=== PATIENT | female | born 1960 | race Hispanic/Latino ===

== ENCOUNTER 2016-07-31 22:27 | Emergency (ER) | payer OTHER, SELFPAY ==
[2016-07-31] MEDS ORDERED: Acetaminophen 500 MG TAB ONE (23:03)
[2016-07-31 23:04] LABS: #Basophils 0.1 thou/uL (0.0-0.2); #Eosinphils 0.2 thou/uL (0.0-0.7); #Lymphocytes 4.1 thou/uL (1.20-3.40); #Monocytes 0.6 thou/uL (0.11-0.59); #Neutrophils 4.1 thou/uL (1.40-6.50); %Basophils 1.1 % (0.0-1.0); %Eosinophils 2.6 % (0.0-10.0); Mean Platelet Volume 6.6 fL (7.4-10.4); Red Blood Cell (RBC) Count 4.82 mill/uL (4.20-5.40); White Blood Cell (WBC) Count 9.2 thou/uL (4.8-10.8)
[2016-07-31 23:22] LABS: ALT (SGPT) 22 U/L (0-55); AST (SGOT) 16 U/L (5-34); Alkaline Phosphatase 94 U/L (40-150); Anion Gap 17 mmol/L (10-20); BUN (Urea Nitrogen) 16 mg/dL (9.8-20.1); Bilirubin, Total 0.2 mg/dL (0.2-1.2); Calc. Creatinine Clearance 0 mL/min (70-130); Calcium 9.4 mg/dL (7.8-10.44); Carbon Dioxide 23 mmol/L (22-29); Chloride 103 mmol/L (98-107); Estimated GFR-MDRD 67; Globulin 3.6 g/dL (2.4-3.5)
[2016-07-31 23:23] LABS: Troponin I Less than 0.010 ng/mL (< 0.028)
--- NOTE | 2016-08-01 07:35 | RAD ---
PORTABLE CHEST: DATE: 07/31/16. FINDINGS: Comparison is made with the 09/01/13 study. The heart is normal in size and the lungs are clear. N i nfiltrate or effusion was seen. There is no vascular congestion or edema. The mediastinum appears normal and the trachea is midline. IMPRESSION: Stable exam showing no acute finding. POS: HOME
== END 2016-07-31 23:35 | disposition home or self-care (01) ==
LOC: BURERS 22:27
DX: R51 Headache (principal); E11.9 Type 2 diabetes mellitus without complications; E78.5 Hyperlipidemia, unspecified; Z79.84 Long term (current) use of oral hypoglycemic drugs; Z79.4 Long term (current) use of insulin
CPT/HCPCS: 71010; 80053; 82553; 84484; 85025; 93005

== ENCOUNTER 2020-07-17 10:24 | Outpatient (CLI) | payer OTHER | END 2020-07-17 10:25 | disposition home or self-care (01) | LOC: BUREKG 10:24 | PROVIDERS: ATTEND Physician Assistant | DX: R00.0 Tachycardia, unspecified (principal) | CPT/HCPCS: 93005; 93010 ==

== ENCOUNTER 2021-01-15 08:06 | Outpatient (CLI) | payer OTHER ==
[2021-01-15 08:55] LABS: ALT (SGPT) 19 U/L (8-55); AST (SGOT) 18 U/L (5-34); Albumin 4.3 g/dL (3.5-5.0); Alkaline Phosphatase 100 U/L (40-110); Anion Gap 16 mmol/L (10-20); BUN (Urea Nitrogen) 27 mg/dL (9.8-20.1); Bilirubin, Total 0.3 mg/dL (0.2-1.2); Calc. Creatinine Clearance 0 mL/min (70-130); Calcium 9.1 mg/dL (7.8-10.44); Carbon Dioxide 24 mmol/L (22-29); Cardiac Risk 4.5 (Less than 4.5); Chloride 102 mmol/L (98-107); Cholesterol 206 mg/dl (< 200 Desired); Globulin 3.3 g/dL (2.4-3.5); Glucose 187 mg/dL (70-105); HDL Cholesterol 46 mg/dL (>60 Neg Risk); LDL Cholesterol, Calculated 109 mg/dL; Potassium 4.8 mmol/L (3.5-5.1); Protein, Total 7.6 g/dL (6.0-8.3); Sodium 137 mmol/L (136-145); Triglycerides 256 mg/dL (Less than 150)
[2021-01-15 09:38] LABS: Thyroid Stimulating Hormone 1.6139 uIU/mL (0.35-4.94)
[2021-01-15 11:58] LABS: Hemoglobin A1c 8.7 % (4.0-6.0)
[2021-01-15 12:40] LABS: Creatinine, Urine 66.94 mg/dL (47-110); Microalbumin Urine Less than 1.0 mg/dL (0.5-50.0)
[2021-01-15 14:09] LABS: Free T4 (Free Thyroxine) 0.97 ng/dL (0.70-1.48)
== END 2021-01-15 08:07 | disposition home or self-care (01) ==
LOC: BURLAB 08:06
PROVIDERS: ATTEND Internal Medicine Endocrinology, Diabetes & Metabolism
DX: E11.65 Type 2 diabetes mellitus with hyperglycemia (principal); R00.2 Palpitations
CPT/HCPCS: 36415; 80053; 80061; 82043; 83036; 84439; 84443

== ENCOUNTER 2021-04-16 08:19 | Outpatient (CLI) | payer OTHER ==
[2021-04-16 09:02] LABS: ALT (SGPT) 21 U/L (8-55); AST (SGOT) 17 U/L (5-34); Albumin 4.2 g/dL (3.5-5.0); Alkaline Phosphatase 98 U/L (40-110); Anion Gap 14 mmol/L (10-20); BUN (Urea Nitrogen) 24 mg/dL (9.8-20.1); Bilirubin, Total 0.3 mg/dL (0.2-1.2); Calc. Creatinine Clearance 0 mL/min (70-130); Calcium 9.8 mg/dL (7.8-10.44); Carbon Dioxide 26 mmol/L (22-29); Cardiac Risk 4.1 (Less than 4.5); Chloride 104 mmol/L (98-107); Cholesterol 218 mg/dl (< 200 Desired); Glucose 144 mg/dL (70-105); HDL Cholesterol 53 mg/dL (>60 Neg Risk); LDL Cholesterol, Calculated 131 mg/dL; Potassium 4.7 mmol/L (3.5-5.1); Protein, Total 7.2 g/dL (6.0-8.3); Sodium 139 mmol/L (136-145); Triglycerides 171 mg/dL (Less than 150)
[2021-04-16 11:15] LABS: Hemoglobin A1c 7.9 % (4.0-6.0)
== END 2021-04-16 08:20 | disposition home or self-care (01) ==
LOC: BURLAB 08:19
PROVIDERS: ATTEND Internal Medicine Endocrinology, Diabetes & Metabolism
DX: E11.65 Type 2 diabetes mellitus with hyperglycemia (principal)
CPT/HCPCS: 36415; 80053; 80061; 83036

== ENCOUNTER 2024-04-22 08:30 | Outpatient (CLI) | payer OTHER ==
[2024-04-23 16:40] LABS: Hemoglobin A1c 6.5 % (4.0-6.0)
[2024-04-23 17:27] LABS: Creatinine, Urine 117.06 mg/dL (47-110)
[2024-04-23 17:29] LABS: Microalbumin Urine 0.8 mg/dL (0.5-50.0); Microalbumin/Creat Ratio 6.8 mg/g (Less than 30)
[2024-04-26 16:29] LABS: Anion Gap 15 mmol/L (10-20); Carbon Dioxide 23 mmol/L (23-31); Chloride 106 mmol/L (98-107); Potassium 4.5 mmol/L (3.5-5.1); Sodium 139 mmol/L (136-145)
[2024-04-26 16:30] LABS: ALT (SGPT) 20 U/L (8-55); AST (SGOT) 20 U/L (5-34); Alkaline Phosphatase 89 U/L (40-110); BUN (Urea Nitrogen) 23 mg/dL (9.8-20.1); Bilirubin, Total 0.3 mg/dL (0.2-1.2); Calc. Creatinine Clearance 0 mL/min (70-130); Calcium 9.4 mg/dL (7.6-10.4); Cholesterol 191 mg/dL (< 200 Desired); Estimated GFR 71; Globulin 3.4 g/dL (2.4-3.5); Glucose 80 mg/dL (80-115); HDL Cholesterol 55 mg/dL (>60 Neg Risk); LDL Cholesterol, Calculated 108 mg/dL; Protein, Total 7.4 g/dL (5.8-8.1); Triglycerides 139 mg/dL (Less than 150)
[2024-04-26 16:31] LABS: Cardiac Risk 3.5 (Less than 4.5)
== END 2024-04-22 08:31 | disposition home or self-care (01) ==
LOC: BURLAB 08:30
PROVIDERS: ATTEND Internal Medicine Endocrinology, Diabetes & Metabolism
DX: E11.65 Type 2 diabetes mellitus with hyperglycemia (principal)
CPT/HCPCS: 80053; 80061; 82043; 83036